=== PATIENT | male | born 1955 | race Caucasian/White ===

== ENCOUNTER 2021-12-11 13:35 | Emergency (ER) | payer OTHER ==
[~2021-12-11] VITALS: Ht 177.8 cm; Wt 158.8 kg
[~2021-12-11 13:35] MED LIST: ASPI325 PO; AZIT250 PO; HYDACE5 PO; MULVITMIND PO; RXHYDACE PO
[2021-12-11] MEDS ORDERED: Percocet 5-3251 EACH PO (16:02)
== END 2021-12-11 16:10 | disposition home or self-care (01) ==
LOC: ER 13:35
DX: M79.18 Myalgia, other site (principal); Z88.0 Allergy status to penicillin
CPT/HCPCS: 72100; A9270